=== PATIENT | male | born 1975 | race Caucasian/White ===

== ENCOUNTER 2022-10-18 10:44 | Day surgery (SDC) | payer BC ==
[~2022-10-18] VITALS: Ht 172.7 cm; Wt 83.0 kg
[2022-10-18] MEDS ORDERED: ATEN25 (11:01)
[2022-10-18] MEDS ORDERED: LORA.5 (11:01)
[2022-10-18] MEDS ORDERED: MULVITA (11:02)
--- NOTE | 2022-10-18 12:28 | NUR ---
10/18/[address]/ANESTHESIA RECOMMMENDS PT HAVE GENERAL ANESTHESIA FOR FUTURE SCOPES.
[2022-10-18 13:52] VITALS: BP 102/64
== END 2022-10-18 13:37 | disposition home or self-care (01) ==
LOC: ORSCSDS 10:44
PROVIDERS: Student in an Organized Health Care Education/Training Program
PROC: 0DBN8ZX Excision of Sigmoid Colon, Via Natural or Artificial Opening Endoscopic, Diagnostic (ICD-10-PCS; principal; 2022-10-18 12:00)
PROC: 0DB58ZX Excision of Esophagus, Via Natural or Artificial Opening Endoscopic, Diagnostic (ICD-10-PCS; principal; 2022-10-18 12:00)
PROC: 0DB98ZX Excision of Duodenum, Via Natural or Artificial Opening Endoscopic, Diagnostic (ICD-10-PCS; principal; 2022-10-18 12:00)
PROC: 0DB78ZX Excision of Stomach, Pylorus, Via Natural or Artificial Opening Endoscopic, Diagnostic (ICD-10-PCS; principal; 2022-10-18 12:00)
PROC: 0DBE8ZX Excision of Large Intestine, Via Natural or Artificial Opening Endoscopic, Diagnostic (ICD-10-PCS; principal; 2022-10-18 12:00)
PROC: 0DBP8ZX Excision of Rectum, Via Natural or Artificial Opening Endoscopic, Diagnostic (ICD-10-PCS; principal; 2022-10-18 12:00)
DX: K62.5 Hemorrhage of anus and rectum (principal); K21.9 Gastro-esophageal reflux disease without esophagitis; R13.14 Dysphagia, pharyngoesophageal phase; K31.7 Polyp of stomach and duodenum; D12.5 Benign neoplasm of sigmoid colon; K62.1 Rectal polyp; K29.70 Gastritis, unspecified, without bleeding; I10 Essential (primary) hypertension; F41.9 Anxiety disorder, unspecified; Z79.899 Other long term (current) drug therapy
CPT/HCPCS: 88305; 88342; J2704; J7120

== ENCOUNTER → 2022-12-12 | Outpatient (CLI) | payer BC, OTHER ==
[~2022-12-12] MED LIST: ATEN25; LORA.5; MULVITA
== END ==
LOC: LAB 11:39 → LAB SHORT 11:39
DX: K14.6 Glossodynia (principal)
CPT/HCPCS: 87102